=== PATIENT | female | born 1955 | race Caucasian/White ===

== ENCOUNTER → 2017-07-31 | Outpatient (CLI) | payer OTHER | LOC: RAD 08:56 | DX: R05 Cough (principal) ==

== ENCOUNTER → 2020-10-04 | Outpatient (CLI) | payer OTHER | LOC: SJCVCIMAG 15:05 | PROVIDERS: ATTEND Internal Medicine | DX: I10 Essential (primary) hypertension (principal); I44.7 Left bundle-branch block, unspecified; E78.5 Hyperlipidemia, unspecified; E11.9 Type 2 diabetes mellitus without complications; I25.5 Ischemic cardiomyopathy; Z79.899 Other long term (current) drug therapy; Z85.3 Personal history of malignant neoplasm of breast ==

== ENCOUNTER → 2020-10-17 | Outpatient (CLI) | payer OTHER ==
[~2020-10-17] MED LIST: AMARYL4 MG PO; ARIMIDEX PO; ASA81BEC PO; CARVEDILOL25 MG PO; COENZYME Q-10200 MG PO; CRESTOR20 MG PO; LISINOPRIL10 MG PO; METFORMIN HCL500 M3 PO; SUPER THERAVIT1 EACH PO
== END ==
LOC: LAB 10:42
PROVIDERS: ATTEND Internal Medicine
DX: Z01.812 Encounter for preprocedural laboratory examination (principal); Z20.822 Contact with and (suspected) exposure to COVID-19

== ENCOUNTER → 2020-10-20 | Outpatient (CLI) | payer OTHER ==
[~2020-10-20] VITALS: Ht 160 cm; Wt 60.8 kg
[2020-10-20 07:21] VITALS: BP 175/84
--- NOTE | 2020-10-20 09:05 | CATHLAB ---
[facility] [place] [address] INVASIVE PROCEDURE REPORT Name: ARIANE FELIX Room #: [facility]#: [id number] Admission: 10/20/20 Attend Phys: Ned Vallejo MD, Discharge: Date of : 51 Report #: [id number] THIS REPORT FOR: cc: Richard Proctor MD, Shaun B. MD Lundgren, Craig H. MD [facility] ~ APPROVED REPORT Study performed: 10/20/2020 07:46:57 Patient Details Patient Status: Out-Patient Room #: The patient is a 65 year-old female Event Personnel Ned Vallejo Automatic Winder Operator, Jaron Bazan RN RN, Nicole Lynne RTR ScrubRinku Sherra RTMichael Monitor Procedures Performed Art Access - R femoral artery* Left Heart Cath w/or w/o Coronaries [id number] [facility] 30846 Initial Mod Sed Same Phys/QHP Gr5y 410333 61342 Mod Sed Same Phys/QHP Ea 400369 Hemostasis w/ Mynx Indication Chest pain Procedure Narrative The patient was brought electively to the Cardiac Catheterization Laboratory and was prepped and draped in a sterile manner. The Right Groin^ was infiltrated with 1% Lidocaine subcutaneous anesthesia. A PINNACLE 6FR Sheath #[id number] sheath was inserted into the RFA^. Coronary angiography was performed using coronary diagnostic catheters. The right coronary system was accessed and visualized with a JR4 catheter. The left coronary system was accessed and visualized with a JL4 catheter. The left ventricle was accessed and visualized with a PIGTAIL catheter. Left ventriculogram was performed in 30 degree projection. Closure device was deployed with a 6 Fr MYNX PRECISION MACHINIST. Hemostasis was obtained with manual pressure following sheath removal without any complications. The patient tolerated the procedure well and there were no complications associated with the procedure. There was no hematoma. Intraoperative Conscious Sedation Sedation start time: 8:00 Case end Time: [facility] [place] [address] INVASIVE PROCEDURE REPORT Name: FELIXARIANE Room #: [facility]#: [id number] Admission: 10/20/20 Attend Phys: Ned Vallejo, Discharge: Date of : 51 Report #: [id number] 8:40 Fentanyl 75 mcg Versed 1.5 mg Fluoro Time: 3.40 minutes Dose: DAP 6169.00 cGycm2 872 mGy Contrast Type and Amount: Omnipaque 140 ml Coronary Angiography The patient's coronary anatomy is left dominant. Diagnostic Cath Left Main Normal, short left main LAD The LAD was a moderate-sized vessel that extended to the apex. 40-50% proximal LAD stenosis at the first diagonal branch Diagonal 1 Small first diagonal with mild proximal plaquing Circumflex Dominant circumflex, angiographically normal OM1 Large normal OM1 OM2 Moderate OM 2, angiographically normal L PDA Normal posterior descending Right Coronary Small dominant right coronary with 95% mid vessel stenosis. The right coronary was thready throughout its limited course. Left Ventriculography The left ventricle is normal in size with abnormal contractility. The left ventricular ejection fraction is estimated to be 35%. Left ventricular wall motion abnormalities are not present. There is no mitral insufficiency. Hemodynamics The aortic pressure is 216/82 mmHg with a mean of 139 mmHg. The left ventricular pressure is 207/10 mmHg with a mean of mmHg. The left ventricular end diastolic pressure is 23 mmHg. Conclusion 1. Moderate left ventricular dysfunction. EF 30-35% 2. Normal, short left main 3. Proximal LAD stenosis 40-50% 3. Large, dominant circumflex 4. Diffusely diseased small nondominant right coronary [facility] [address] [place] [address] INVASIVE PROCEDURE REPORT Name: ARIANE FELIX [id number] Admission: 10/20/20 Attend Phys: Ned Vallejo, Discharge: Date of : 51 Report #: [id number] Recommendations Aggressive Medical Therapy <ELECTRONICALLY SIGNED> By: Ned Vallejo MD, [facility] 10/20/2004 3 0904 Ned Vallejo MD, FACC /INF
== END | disposition home or self-care (01) ==
LOC: CATH 06:20
PROVIDERS: ATTEND Internal Medicine
DX: R07.9 Chest pain, unspecified (principal); I25.10 Atherosclerotic heart disease of native coronary artery without angina pectoris; I42.0 Dilated cardiomyopathy; I49.9 Cardiac arrhythmia, unspecified; I10 Essential (primary) hypertension; E11.9 Type 2 diabetes mellitus without complications; E78.5 Hyperlipidemia, unspecified; Z98.890 Other specified postprocedural states; Z79.899 Other long term (current) drug therapy; Z79.82 Long term (current) use of aspirin

== ENCOUNTER → 2020-11-02 | Outpatient (CLI) | payer OTHER | LOC: SJCVC 13:24 | PROVIDERS: ATTEND Internal Medicine Cardiovascular Disease | DX: R94.31 Abnormal electrocardiogram [ECG] [EKG] (principal); I44.7 Left bundle-branch block, unspecified; I42.7 Cardiomyopathy due to drug and external agent; I25.10 Atherosclerotic heart disease of native coronary artery without angina pectoris; I42.0 Dilated cardiomyopathy; I11.0 Hypertensive heart disease with heart failure; I50.22 Chronic systolic (congestive) heart failure; E78.5 Hyperlipidemia, unspecified; Z98.890 Other specified postprocedural states; Z88.8 Allergy status to other drugs, medicaments and biological substances; Z79.82 Long term (current) use of aspirin; Z79.84 Long term (current) use of oral hypoglycemic drugs; Z79.899 Other long term (current) drug therapy; Z82.49 Family history of ischemic heart disease and other diseases of the circulatory system ==

== ENCOUNTER → 2020-11-08 | Outpatient (CLI) | payer OTHER | LOC: LAB 14:18 | PROVIDERS: ATTEND Internal Medicine Cardiovascular Disease | DX: Z01.812 Encounter for preprocedural laboratory examination (principal); Z20.822 Contact with and (suspected) exposure to COVID-19 ==

== ENCOUNTER 2020-11-13 06:35 | Observation (INO) | payer OTHER ==
[~2020-11-13] VITALS: Ht 160 cm; Wt 65.5 kg
[2020-11-13 07:56] LABS: HEMATOCRIT 37.4 % (37.0-47.0); HEMOGLOBIN 12.7 gm/dL (12.0-15.0); MCH 31.9 pg (26.0-34.0); MCHC 33.9 g/dL (28.0-37.0); MCV 93.8 fL (80.0-100.0); RBC 3.99 mil/uL (4.20-5.00); RDW 12.4 % (10.5-14.5); WBC 7.7 thou/uL (4.0-11.0)
[2020-11-13 08:14] LABS: APTT 23.6 Seconds (24.5-32.8); INR 0.95; PROTIME 10.4 Seconds (10.5-12.1)
[2020-11-13 08:15] LABS: CALCIUM 8.8 mg/dL (8.5-10.1); CREATININE 0.9 mg/dL (0.6-1.0); POTASSIUM 4.5 mmol/L (3.5-5.1)
[2020-11-13 08:18] VITALS: BP 187/71
[2020-11-13 08:21] LABS: ALBUMIN 3.6 g/dL (3.4-5.0); TOTAL BILIRUBIN 0.4 mg/dL (0.2-1.0); TOTAL PROTEIN 6.7 g/dL (6.4-8.2)
[2020-11-13 14:05] VITALS: BP 154/73
--- NOTE | 2020-11-13 19:14 | NUR ---
pt to the unit post pacemaler inseretion in the right shoulder. pt oriented to room and bedspace. assessment as charted - meds as per sep - given hydrocodome for co's of pain in shoulder with good relief. pt up to the bsc with min assist - immobilizer remains insitu. nirali diet and fluids. no co's of nausea. at the bedside. no co's at the present time.
[2020-11-13 19:30] VITALS: BP 152/65
[2020-11-13 23:30] VITALS: BP 122/55
[2020-11-14 04:00] VITALS: BP 176/63
--- NOTE | 2020-11-14 04:20 | NUR ---
PATIENT REPORTED BEING WOKEN UP BY "THUMPING SENSATION ON HER LEFT CHEST WALL. IT IS SPORATIC AND DIFFERENT NUMBER OF THUMPS IN A ROW. STATES SHE FEELS LIKE SHE IS BEING HIT SIDEWAYS EACH TIME. DOES NOT REPORT ANY PAIN ASSOCIATED WITH IT. WANTS TO KNOW IF THIS IS NORMAL. PER TELEMETRY, PACER SPIKES ARE EQUALLY SPACED. UNIT WILL BE INTERREGATED THIS AM. PATIENT TO REPORT ANY PAIN ASSOCIATED WITH CHEST.
--- NOTE | 2020-11-14 04:47 | NUR ---
ASSESSMENTS CHARTED, MEDS CHARTED GIVEN. PATIENT RESTING IN BED DURING SHIFT. PATIENT V-PACED ON TELEMETRY AFTER RECEIVING BIV ICD IN RIGHT CHEST. AROUND 0400 PATIENT WAS WOKEN UP BY "THUMPS" TO HER LEFT SIDE RANDOM STRENGTH, RANDOM NUMBER IN A ROW. DENIES PAIN WITH SENSATION. DENIED PAIN DURING SHIFT. EXPLAINED UNIT WILL BE INTERREGATED THIS MORNING. PATIENT KNOWS TO CALL IF PAIN IS ASSOCIATED. FALL PRECAUTIONS IN PLACE DURING SHIFT.
[2020-11-14 07:54] VITALS: BP 188/67
[2020-11-14] MEDS ORDERED: AMLODIPINE BESY10 MG PO (08:15)
[2020-11-14 11:21] VITALS: BP 188/67
--- NOTE | 2020-11-17 12:06 | P ---
[facility] [place] [address] PROCEDURE REPORT Name: ARIANE FELIX Room #: 209-P [facility] Jim Castro#: [id number] Admission: 11/13/20 Attend Phys: Florentino Juarez MD Discharge: 11/14/20 Date of : 51 Report #: [id number] THIS REPORT FOR: cc: Richard Proctor MD, Shaun B. MD Couchonnal, Luis F. MD ~ DOC #: [id number] Florentino Juarez MD DATE OF SERVICE: 11/13/2020 PROCEDURE: BiV ICD. PREOPERATIVE DIAGNOSES: 1. Nonischemic cardiomyopathy. 2. Chronic LV systolic heart failure. 3. Left bundle-branch block. 4. Grant [employer] functional class III heart failure. 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 She has been on optimal medical therapy and she is here for biventricular ICD implantation with a right-sided approach. ANESTHESIA: The patient underwent MAC anesthesia with no anesthesia related complications. PROCEDURE: The patient underwent informed consent. We discussed the details of the procedure including the risks, which include but not limited to bleeding, infection, vascular damage, cardiac perforation, stroke and [place]. Risks also include pneumothorax. She understands these risks and is willing to proceed. DESCRIPTION OF PROCEDURE: The patient was brought to the EP laboratory in a fasting and sedated state, prepped and draped in a sterile fashion, underwent a venogram showing patency of the right axillary vein and received IV antibiotics. I injected lidocaine at the incision site. Incision was made. A pocket was created over the prepectoral fascia and access was obtained 3 times of the right axillary vein using the extrathoracic approach, which she is positioned using the modified Seldinger technique. Next, a dual coil ICD lead was positioned in the right ventricular apex. An atrial lead was placed into the right atrial appendage, both with adequate pacing and sensing thresholds. They were sutured to the prepectoral fascia using Ethibond suture. Next, a 10-Tajik short sheath was placed in the right axillary vein and a coronary guide sheath was placed into the right atrium. The initial sheath used was a right-sided sheath and [address] [address] PROCEDURE REPORT Name: ARIANE FELIX Room #: 209-P [facility] Jim Castro#: [id number] Admission: 11/13/20 Attend Phys: Florentino Juarez MD Discharge: 11/14/20 Date of : 51 Report #: [id number] this was too large and would basically go to the RV apex. I then went with my standard [employer] Alec sheath and working in JOSE orientation. I was able to find the ostium of the CS, which had a very vertical takeoff. After trying to repeat an injection. There was damage to the sheath and I could not do an injection. Therefore, I tried another [employer]. Alec guide sheath with more of a gastelum's hook. This did not work. I tried a [employer]om[employer] Mediat[employer] sheath. This did not work and then I went back with my original standard guide sheath and was able to finally get into the coronary sinus. I performed a coronary sinus venogram and there was a nice anterolateral branch. I was able to deliver lead here with adequate pacing and sensing thresholds. There was some phrenic nerve stimulation, but this was at higher outputs and there was a good safety margin between the diaphragm stim and pacing thresholds. The sheath was split. The lead came back slightly, but we still had good thresholds and therefore, the lead was sutured to the prepectoral fascia connected to the device. A tug tests were performed. Pocket was irrigated with vancomycin and the pocket was closed in two layers using 2-0 for the deep layer, 3-0 for the middle layer and surgical glue was placed throughout her skin layer. The patient awoke neurologically and hemodynamically intact. No complications. No significant bleeding. The implanted device and leads were all from [employer]. The device was model number GGM [id number] serial number [id number]. The atrial lead was a 5076, serial number [id number], RV lead was 6947, 55 cm, serial number [id number]. The LV lead was 4298, serial number [id number]. Atrial lead demonstrated P waves of 2.1 millivolts, pacing impedance 613 ohms and a pacing threshold of 2 volts at milliseconds. The RV lead demonstrated R waves of 15.7 mV, pacing impedance of 630 ohms and a pacing threshold of 0.6 volts at 0.5 milliseconds. The LV lead was programmed from LV1-LV2 with a threshold of 1 volt at 0.5 milliseconds with a pacing impedance of 527 ohms. The device was programmed to the DDDR mode. The LV lead was programmed to pace 30 milliseconds prior to the RV lead, which resulted in improvement in the QRS duration down to 105 milliseconds. The VT zone was set at 180-220 beats per minute with three rounds of burst followed by 3 rounds of ramp followed by max output shocks. VF zone was set greater than 220 beats per minute with ATP while charging followed by max output shocks. CONCLUSION: 1. Successful BiV ICD implantation. 2. Satisfactory atrial, right ventricular, and left ventricular pacing and sensing thresholds. Florentino Juarez MD Marquis/JUAN/LISA [facility] [address] [place] [address] PROCEDURE REPORT Name: ARIANE FELIX Lalito Room #: 209-P [facility] M..#: [id number] Admission: 11/13/20 Attend Phys: Florentino Juarez MD Discharge: 11/14/20 Date of : 51 Report #: [id number] <ELECTRONICALLY SIGNED> By: Florentino Juarez MD 11/17/20 1206 1416 0109 Florentino Juarez MD /nt
== END 2020-11-14 12:20 | disposition home or self-care (01) ==
LOC: CATH 06:35 → 2N 13:32 → CATH 14:50 → 2N 11-14 12:20
PROVIDERS: ADMIT Internal Medicine Cardiovascular Disease; ATTEND Internal Medicine Cardiovascular Disease
DX: I42.8 Other cardiomyopathies (principal); I11.0 Hypertensive heart disease with heart failure; I50.22 Chronic systolic (congestive) heart failure; E11.9 Type 2 diabetes mellitus without complications; E78.5 Hyperlipidemia, unspecified; Z85.3 Personal history of malignant neoplasm of breast; Z79.82 Long term (current) use of aspirin; Z79.84 Long term (current) use of oral hypoglycemic drugs

== ENCOUNTER → 2021-02-13 | Outpatient (CLI) | payer OTHER ==
[~2021-02-13] MED LIST changes: +AMLODIPINE BESY10 MG PO
== END ==
LOC: SJCVCIMAG 09:26
PROVIDERS: ATTEND Internal Medicine
DX: I35.8 Other nonrheumatic aortic valve disorders (principal); I42.7 Cardiomyopathy due to drug and external agent; I25.10 Atherosclerotic heart disease of native coronary artery without angina pectoris; I10 Essential (primary) hypertension; I44.7 Left bundle-branch block, unspecified; E78.5 Hyperlipidemia, unspecified; E11.9 Type 2 diabetes mellitus without complications; Z88.8 Allergy status to other drugs, medicaments and biological substances; Z95.810 Presence of automatic (implantable) cardiac defibrillator; Z79.82 Long term (current) use of aspirin; Z79.84 Long term (current) use of oral hypoglycemic drugs; Z79.899 Other long term (current) drug therapy; Z85.3 Personal history of malignant neoplasm of breast; Z82.49 Family history of ischemic heart disease and other diseases of the circulatory system

== ENCOUNTER → 2021-02-21 | Outpatient (CLI) | payer OTHER | LOC: SJCVC 14:55 | PROVIDERS: ATTEND Internal Medicine | DX: R94.31 Abnormal electrocardiogram [ECG] [EKG] (principal); I42.7 Cardiomyopathy due to drug and external agent; I25.10 Atherosclerotic heart disease of native coronary artery without angina pectoris; I10 Essential (primary) hypertension; I44.7 Left bundle-branch block, unspecified; E11.9 Type 2 diabetes mellitus without complications; E78.5 Hyperlipidemia, unspecified; Z88.8 Allergy status to other drugs, medicaments and biological substances; Z79.82 Long term (current) use of aspirin; Z79.84 Long term (current) use of oral hypoglycemic drugs; Z79.899 Other long term (current) drug therapy; Z82.49 Family history of ischemic heart disease and other diseases of the circulatory system ==

== ENCOUNTER → 2021-08-17 | Outpatient (CLI) | payer OTHER | LOC: SJCVC 10:06 | PROVIDERS: ATTEND Internal Medicine | DX: R94.31 Abnormal electrocardiogram [ECG] [EKG] (principal); I25.10 Atherosclerotic heart disease of native coronary artery without angina pectoris; I10 Essential (primary) hypertension; I42.7 Cardiomyopathy due to drug and external agent; I44.7 Left bundle-branch block, unspecified; E11.9 Type 2 diabetes mellitus without complications; E78.5 Hyperlipidemia, unspecified; Z88.8 Allergy status to other drugs, medicaments and biological substances; Z90.710 Acquired absence of both cervix and uterus; Z98.890 Other specified postprocedural states; M85.80 Other specified disorders of bone density and structure, unspecified site; Z79.82 Long term (current) use of aspirin; Z79.84 Long term (current) use of oral hypoglycemic drugs; Z79.899 Other long term (current) drug therapy ==